=== PATIENT | female | born 1965 | race Caucasian/White ===

== ENCOUNTER 2024-06-18 14:14 | Outpatient (RCR) | payer MEDICAID, SELFPAY ==
--- NOTE | 2024-06-18 15:20 | PT.OPEX ---
PT [place] [facility] Eval PT [facility] Outpatient Eval Start: 06/18/24 11:55 Freq: Status: Active Protocol: Document 06/18/24 15:07 KLV (Rec: 06/18/24 15:17 KLV [id number]) E-signed By Heather South, PT Physical Therapy Outpatient Evaluation Insurance Information Recert Due Date 09/12/24 Insurance Name Medicaid Medical Diagnosis OA right knee Pre-op R TKA DOS: 06/22/24 ( [facility]) Treating Diagnosis Right knee pain, limited knee ROM, muscle weakness, antalgic gait Referring MD [place] Subjective Subjective Saya reports to PT with primary complaint of chronic right knee pain. Previous L TKA 1 year ago and recovered well. Currently ambulates with SEC and needing to take frequent seated rest breaks. 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 She lives with her daughter in a multilevel home with 1 step entry. Everything she needs is on main level. Does plan to stay with her Aunt for 2-3 days following surgery. Her home has 3 steps to enter with B handrail and everything on main level. At home she has a tub shower with shower chair, high rise toilet and leg system support administrator. She feels that she is very prepared since recently had her L knee replaced and previous spinal surgeries. 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 Session focused on education of post-operative fall prevention precautions, transfers, gait with AD, stair negotiation, post-operative exercises. She is able to verbalize precautions and demonstrated independence with exercises, gait and stairs. She is appropriate to proceed with surgery at this time. Primary Functional Limitations Walking, standing, stair negotiation, bending, lifting Plan of Care Rehabilitation Potential Good Physical Therapy Goals By end of session today, patient will...All goals MET Demonstrate appropriate gait pattern with FWW to utilize post surgery for optimal safety when ambulating Demonstrate ability to negotiate stairs using appropriate stair pattern post surgery for optimal safety when at home and in community Verbalize understanding of most appropriate home set up including needed equipment for optimal safety and recovery post surgery Be independent in HEP program to show ability to perform appropriate exercises post surgery Treatment Plan/Direct Interventions Self-Care/Home Management, Therapeutic Exercises Frequency/Duration 1 pre-op session. Patient will be doing post-op therapy at [facility] Patient Will Be Discharged From Therapy Completion of LTG(s), Independent w/HEP, Independently Progressing Evaluation Billing Untimed Code Treatment Minutes 10 Complexity Low Certification Information Initial Certification Date 06/18/24 Ending Certification Date 09/12/24 Provider Signature Required Yes Provider Signature Shows Agreement With POC & Medical Necessity Physician NPI Number Write NPI# Here Physician Comment/Change : Physician Signature & Date Requested Please Sign/Date Here
== END 2024-10-16 23:59 | disposition home or self-care (01) ==
PROVIDERS: PCP Family Medicine; Visit Provider Orthopaedic Surgery
DX: M17.11 Unilateral primary osteoarthritis, right knee (principal); Z96.651 Presence of right artificial knee joint; Z51.89 Encounter for other specified aftercare
CPT/HCPCS: 97110; 97161; 97535

== ENCOUNTER 2024-06-22 09:56 | Day surgery (SDC) | payer MEDICAID, SELFPAY ==
[2024-06-22] VITALS (25 sets, daily range): BP systolic 104–158; BP diastolic 51–96; PULSE 56–90; RESP 12–20; TEMP 35.8–37.4; O2SAT 85–98; BMI 49.5
[2024-06-22] MEDS: LACTATED RINGERS 1000 ML 1,000 ML 100 ML IV (11:00)
[2024-06-22] MEDS: OXYCODONE (CR) 10 MG TAB.ER.12H PO (11:00)
[2024-06-22] MEDS: SODIUM CHLORIDE 0.9 % (FLUSH) 10 ML SYRINGE IVF (11:00)
[2024-06-22] MEDS: ACETAMINOPHEN 500 MG TABLET 1000 MG PO ×2 (11:00→18:10)
--- NOTE | 2024-06-22 12:19 | SUR.PREOP ---
TIME?OUT:?1220 PT/RN/MDA?VERIFICATION?OF?SURGICAL?SITE,?PROCEDURE,?AND?CONSENT OBTAINED?PRIOR?TO?INVASIVE?PROCEDURE.
[2024-06-22] MEDS: fentaNYL 100 MCG/2 ML inj IVP (12:21)
[2024-06-22] MEDS: MIDAZOLAM HCL 1 MG/ML inj IVP (12:21)
[2024-06-22] MEDS: diphenhydrAMINE 50 MG/ML inj 25 MG IVP (12:38)
--- NOTE | 2024-06-22 12:55 | P.NB_ITS ---
Nerve Block Nerve Block Time Seen by Provider: : Date Seen: 06/22/24 Type of block requested by surgeon for post-operative analgesia: adductor canal Side: right Time out performed: Yes Verification of patient name: Yes Verification of date of : Yes Site marking: site marked Name of person performing procedure: William Continuous monitoring Was continuous monitoring of O2 sat, B/P, color television console monitor, recorded every 15 minutes?: Yes Procedure Checklist: sterile prep, needles and gloves Ultrasound guided. Images saved: Yes Medications given in 5ml increments after negative aspiration: Marcaine %: 0.25 mL: 15 Needle gauge: 20 Precedex (mcg): 25 Patient tolerated procedure well: Yes Block Charges Block Charge (with Pro Fee): Femoral Nerve Use of Ultrasound Machine for Block: Yes- US Guidance/pain block
--- NOTE | 2024-06-22 12:55 | P.NB_ITS ---
Nerve Block Nerve Block Time Seen by Provider: : Date Seen: 06/22/24 Type of block requested by surgeon for post-operative analgesia: geniculars Side: right Time out performed: Yes Verification of patient name: Yes Verification of date of : Yes Site marking: site marked Name of person performing procedure: William Continuous monitoring Was continuous monitoring of O2 sat, B/P, monitor tech, recorded every 15 minutes?: Yes Procedure Checklist: sterile prep, needles and gloves Ultrasound guided. Images saved: Yes Medications given in 5ml increments after negative aspiration: Marcaine %: 0.25 mL: 9 Needle gauge: 25 Patient tolerated procedure well: Yes Block Charges Block Charge (with Pro Fee): Genicular Nerve Block
--- NOTE | 2024-06-22 12:56 | W.ANESCHARGE ---
Anesthesia Charges Start Date/Time Anesthesia Start Date: 06/22/24 Anesthesia Start Time: 13:07 Stop Date/Time Anesthesia Stop Date: 06/22/24 Anesthesia Stop Time: 15:52
--- NOTE | 2024-06-22 13:10 | SUR.PREOP ---
At the beginning of nerve block a localized pinpoint red dots noted at knee and upper calf. Anesthesia ordered Benadryl 25mg IV.
--- NOTE | 2024-06-22 15:02 | CRLHL7_ITS ---
For Patients: As a result of the Cures Act, medical imaging exams and procedure reports are released immediately into your electronic medical record. You may view this report before your referring provider. If you have questions, please contact your health care provider. INDICATION: Post operative knee arthroplasty, post operative total knee arthroplasty TECHNIQUE: Knee radiograph 2 views right COMPARISON: 05/12/2024 FINDINGS: Bone: No acute fractures or aggressive bone lesions are identified. Joint: The patient is status post a total knee arthroplasty with patellar resurfacing. No significant knee effusion is seen. Soft tissue: Anterior subcutaneous gas and joint gas are present from recent surgery. No radiopaque foreign bodies are seen. IMPRESSION: 1. There is an unremarkable postoperative appearance of the knee arthroplasty. Dictated by: Armando Escoto MD @ 06/22/2024 16:24:14 (Electronically Signed)
--- NOTE | 2024-06-22 15:06 | PM.ORPRC ---
Procedure Note Date of procedure: 06/22/24 Procedure: PREOPERATIVE DIAGNOSIS: Right knee osteoarthritis POSTOPERATIVE DIAGNOSIS: Right knee osteoarthritis NAME OF OPERATION: Right total knee arthroplasty SURGEON: Armando Castle MD SPA ASSISTANT MANAGER: Loree Tong PA-C ANESTHESIA: General ESTIMATED BLOOD LOSS: 0 mL COMPLICATIONS: None SPECIMENS: None DRAINS: None PREOPERATIVE ANTIBIOTICS: Ancef 3 grams, antibiotic impregnated cement IMPLANTS: 1. J&J Attune revision CRS #6 posterior stabilized femur, 14 mm x 50 mm cemented stem 2. Revision CRS #4 fixed-bearing tibia, 14 mm x 50 mm cemented stem 3. #6 posterior stabilized, 10 mm fixed-bearing polyethylene 4. 38 patella INDICATIONS: The patient is a 59-year-old with a longstanding history of severe, unrelenting right knee pain secondary to end-stage (grade IV) right knee osteoarthritis. Despite appropriate nonoperative management, including activity modification, anti-inflammatories, [id number] pain medication, bracing, physical therapy, and injections they continue to have pain and disability. Operative intervention was offered. The risks, benefits and expected outcomes were discussed in detail. These included but were not limited to: Infection, bleeding, injury to blood vessel or nerve, venous thromboembolism. All questions were answered to their satisfaction. Use of an public relations assistant was necessary throughout the case for patient positioning and safety, soft tissue retraction, and closure. A modifier 22 should be added to this case. The patient's weight of 135 kg with a BMI of 50 made the exposure difficult. In an attempt to reduce the risk of aseptic loosening with this high BMI, stemmed components were used. These factors added time and cost to complete the case. PROCEDURE: The patient was placed supine on the operating table. General anesthesia was administered. The public relations assistant made sure the patient was positioned appropriately. The lower extremity was prepped and draped in the usual sterile fashion. The limb was exsanguinated with the Tad bandage. The pneumatic tourniquet was inflated to 300 mmHg. A standard anterior incision was made with the knee in flexion. Subcutaneous dissection was sharply taken through fascial layer #1. Full-thickness medial and lateral flaps were elevated. The public relations assistant retracted the soft tissues and protected them throughout the case. A standard subvastus approach was made. The patella was subluxed. The infrapatellar fat pad was debrided. The menisci and cruciate ligaments were sharply d?brided. Marginal osteophytes were d?brided with the rongeur. The drill was used to penetrate the femoral canal. The canal was aspirated and irrigated with pulse lavage. The intramedullary femoral guide was placed for a 5-degree valgus cut, removing 10 mm off the distal femur. The saw was used to make the cut. Whitesides line and the trans epicondylar axis were marked. The femoral sizing guide was pinned onto the distal femur. Three degrees of external rotation nicely parallels the transepicondylar axis. Pins were placed for posterior referencing. The four-in-one cutting guide was pinned onto the distal femur. The anterior, posterior, and chamfer cuts were made. The public relations assistant protected the collateral ligaments. The revision trial was placed. The box cuts were made. The drill was used x2. The stemmed, boxed trial was placed and was an excellent fit. Attention was then turned to the proximal tibia. The extramedullary tibial guide was placed for a neutral varus/valgus cut with 5 degrees of posterior slope, removing 2 mm based off the medial tibial surface. The public relations assistant protected the collateral ligaments and the neurovascular bundle. The saw was used to make the cut. Trial components were placed. The knee was nicely balanced in both flexion and extension. The trial components were removed. The tray was placed in appropriate rotation, parallel to our tibial cutting pins. It was pinned by the public relations assistant and the drill x2 was used. The stemmed tibial trial was placed. The punch was used. The tray was removed. The punch was used again. Attention was then turned to the patella. Tanana patellar thickness was 21.5 mm. The lobster claw resection guide was used with the 7.5 mm tony. The saw was used to make the cut. Drill holes were made by the public relations assistant. The trial was placed and was an excellent fit. Cancellous surfaces were irrigated with pulse lavage and thoroughly dried by the public relations assistant. We cemented the tibial component, then the femoral component. We impacted the 10 mm polyethylene onto the tibial tray. The knee was brought into full extension. We then cemented the patellar component. Excessive cement was removed. The cement was allowed to harden. The knee was taken through a range of motion and was found to be nicely balanced in both flexion and extension. The patella tracks centrally. The public relations assistant did a three minute dilute Betadine solution soak. The public relations assistant irrigated the wound with 3 liters of normal saline via pulse lavage. The public relations assistant reapproximated the extensor mechanism with #1 Vicryl in an interrupted [id number] fashion. The public relations assistant then ran the extensor mechanism with a #1 PDO Stratafix. The public relations assistant closed the subcutaneous tissues with a 3-0 Stratafix and the skin with a running 3-0 Stratafix in a subcuticular fashion. Glue was used to seal the skin. The public relations assistant placed a dry dressing. Sponge and needle counts were correct x2. The patient tolerated the procedure well. There were no apparent complications. They were carefully transferred to the hospital bed and taken to the postanesthesia care unit in satisfactory condition. PLAN: The patient will be mobilized with physical therapy. Aspirin will be used for DVT prophylaxis. They will be discharged to home once medically appropriate.
--- NOTE | 2024-06-22 15:56 | W.ANESCHARGE ---
Anesthesia Charges Start Date/Time Anesthesia Start Date: 06/22/24 Anesthesia Start Time: 13:07 Stop Date/Time Anesthesia Stop Date: 06/22/24 Anesthesia Stop Time: 15:52
[2024-06-22] MEDS: HYDROmorphone 0.5 mg/0.5 ml inj IVP ×2 (17:10→18:06)
[2024-06-22] MEDS: CEFAZOLIN 3 GM in 0.9 % SODIUM CHLORIDE Mini-bag 100 ML IVPB (18:07)
--- NOTE | 2024-06-22 19:19 | PC.NURSE ---
Arrived to the floor @ 1630. The patient arrives with 8/10 pain in R knee. PRN medication was given, R knee dressing is CDI. pedal pulse present. No reports of nausea, the patient has not eaten and has mainly been drowsy. Call light within reach. Patient is using her CPAP from home. Arabella SHAFFER BSN
[2024-06-22] MEDS: OXYCODONE 5 MG TABLET PO ×2 (19:37→21:38)
[2024-06-22] MEDS: ASPIRIN 81 MG TABLET EC PO (20:57)
[2024-06-22] MEDS: SENNOSIDES 1 TAB TABLET 2 TAB PO (20:57)
[2024-06-23] MEDS: ACETAMINOPHEN 500 MG TABLET 1000 MG PO ×2 (00:22→05:55)
[2024-06-23] MEDS: OXYCODONE 5 MG TABLET PO ×4 (00:22→08:23)
[2024-06-23] MEDS: HYDROmorphone 0.5 mg/0.5 ml inj IVP (02:29)
[2024-06-23] MEDS: CEFAZOLIN 3 GM in 0.9 % SODIUM CHLORIDE Mini-bag 100 ML IVPB (02:29)
[2024-06-23 02:40] VITALS: RESP 18; O2SAT 94
[2024-06-23 02:45] VITALS: BP 109/64; PULSE 84; RESP 18; TEMP 36.7; O2SAT 94
[2024-06-23 07:06] LABS: Hemoglobin* 12.8 gm/dL (12.0-16.0); Immature Granulocytes Abs Auto 0.01 K/uL (0.00-0.30); Immature Granulocytes Pct Auto 0.1 %; Lymphocytes Percent Auto 14.4 % (20-44); Mean Corpuscular HGB Conc 31 gm/dL (32-36); Mean Corpuscular Hemoglobin 29 pg (26-34); Mean Corpuscular Volume 92 fL (80-100); Neutrophils Percent Auto 74.5 % (42.0-72.0); Platelet Count* 283 K/uL (140-440); RDW Coefficient of Variation % 13.4 % (11.5-15.5); Red Blood Count 4.47 m/uL (4.00-5.20)
[2024-06-23 07:13] LABS: Slide Review Reflex No
[2024-06-23 07:28] LABS: Potassium* 4.5 mmol/L (3.6-5.1); Sodium* 138 mmol/L (135-149)
--- NOTE | 2024-06-23 07:28 | PC.NURSE ---
Pt alert and oriented x3. Afebrile. Pt reports 6-8/10 pain in right knee, pain managed with PRN medications. RN discussed with pt pain management pt reports that prior to surgery her pain was 10/10 and her knee feels ?much better than before? RN asked if pt felt her pain was tolerable pt stated ?yes, I am able to sleep and get up and walk.??Pt?s right knee dressing is CDI. Pt is up SBA with walker, voiding and tolerating a regular diet. ?
[2024-06-23 07:31] LABS: Creatinine* 1.3 mg/dL (0.5-1.5); Est. Creatinine Clearance* 40.89; Estimated Glomerular Filt Rate 47 ml/min
[2024-06-23 07:32] LABS: Blood Urea Nitrogen* 20 mg/dL (7-30)
[2024-06-23 07:33] LABS: INR 1.08 (0.91-1.10); Prothrombin Time 14.6 Seconds
--- NOTE | 2024-06-23 07:55 | PM.ORPN ---
Subjective Subjective Time Seen by Provider: 07:55 Date Seen: 06/23/24 Principal diagnosis: Status post right knee replacement Interval history: Asya is comfortable this morning sitting in her recliner. She states she got some sleep last night as well. She has been ambulating in this has been going well. She plans to discharge today. Ortho Exam Narrative Exam Narrative: Alert and oriented x3. Patient is in no acute distress. Converses without labored breathing. Hearing is grossly intact. Ambulates with a walker. Examination of the right knee shows the dressing is intact. Ecchymosis is present. No drainage or erythema or sign of infection. CMS intact right lower extremity. Calf is soft and nontender. She is easily able to straight leg raise. Const Vital Signs, click to edit/add: Vital Signs - 24 hr 06/22/24 10:17 06/22/24 12:21 06/22/24 12:25 Temperature 97.8 F Pulse Rate 65 62 65 Pulse Rate [Left Pulse Oximeter] Respiratory Rate 20 20 18 Blood Pressure 148/51 H 150/79 H 136/68 Blood Pressure [Left Arm] Pulse Oximetry 95 98 95 Oxygen Delivery Method Room Air Nasal Cannula Nasal Cannula Oxygen Flow Rate 2 2 06/22/24 12:30 06/22/24 12:35 06/22/24 12:40 Temperature Pulse Rate 60 59 L 57 L Pulse Rate [Left Pulse Oximeter] Respiratory Rate 18 18 16 Blood Pressure 107/60 119/71 105/60 Blood Pressure [Left Arm] Pulse Oximetry 97 96 96 Oxygen Delivery Method Nasal Cannula Nasal Cannula Nasal Cannula Oxygen Flow Rate 2 2 2 06/22/24 12:45 06/22/24 15:47 06/22/24 15:55 Temperature 97.3 F L Pulse Rate 56 L 65 61 Pulse Rate [Left Pulse Oximeter] Respiratory Rate 16 14 16 Blood Pressure 119/64 105/75 109/73 Blood Pressure [Left Arm] Pulse Oximetry 97 93 97 Oxygen Delivery Method Nasal Cannula OxyMask OxyMask Oxygen Flow Rate 2 10 10 06/22/24 16:00 06/22/24 16:05 06/22/24 16:10 Temperature 97.4 F L Pulse Rate 60 60 61 Pulse Rate [Left Pulse Oximeter] Respiratory Rate 14 16 14 Blood Pressure 112/72 129/58 L 112/95 H Blood Pressure [Left Arm] Pulse Oximetry 98 98 97 Oxygen Delivery Method OxyMask OxyMask Blow By Oxygen Flow Rate 10 6 10 06/22/24 16:15 06/22/24 16:19 06/22/24 16:25 Temperature 97.4 F L 96.4 F L Pulse Rate 66 66 67 Pulse Rate [Left Pulse Oximeter] Respiratory Rate 16 16 14 Blood Pressure 127/83 139/96 H Blood Pressure [Left Arm] Pulse Oximetry 95 94 Oxygen Delivery Method Room Air Room Air Oxygen Flow Rate 06/22/24 16:45 06/22/24 17:00 06/22/24 17:15 Temperature 96.4 F L 96.6 F L 96.6 F L Pulse Rate 71 68 88 Pulse Rate [Left Pulse Oximeter] Respiratory Rate 12 14 14 Blood Pressure 158/76 H 140/66 H 139/67 Blood Pressure [Left Arm] Pulse Oximetry 90 88 88 Oxygen Delivery Method Room Air Oxygen Flow Rate 06/22/24 17:30 06/22/24 17:31 06/22/24 18:00 Temperature 96.6 F L 97.7 F Pulse Rate 70 83 Pulse Rate [Left Pulse Oximeter] Respiratory Rate 14 14 Blood Pressure 119/72 104/69 Blood Pressure [Left Arm] Pulse Oximetry 85 L 92 91 Oxygen Delivery Method CPAP CPAP CPAP Oxygen Flow Rate 06/22/24 18:30 06/22/24 19:30 06/22/24 21:00 Temperature 99.0 F 99.3 F 97.7 F Pulse Rate 85 71 90 Pulse Rate [Left Pulse Oximeter] Respiratory Rate 14 20 20 Blood Pressure 120/75 125/70 145/72 H Blood Pressure [Left Arm] Pulse Oximetry 90 91 96 Oxygen Delivery Method CPAP Room Air Room Air Oxygen Flow Rate 06/22/24 23:00 06/23/24 02:40 06/23/24 02:45 Temperature 97.8 F 98.1 F Pulse Rate 77 Pulse Rate [Left Pulse Oximeter] 84 Respiratory Rate 18 18 18 Blood Pressure 115/62 Blood Pressure [Left Arm] 109/64 Pulse Oximetry 91 94 94 Oxygen Delivery Method Room Air Room Air Room Air Oxygen Flow Rate Assessment and Plan Assessment and plan (1) Morbid obesity: Status: Acute (2) Status post right knee replacement: Status: Acute Assessment and Plan: Plan for discharge is today to home if they meet discharge criteria. DVT prophylaxis includes aspirin 81 mg twice daily x1 month, Compression stockings as needed for swelling. Frequent ambulation, every hour throughout the day. Remove dressing in 1 week. Observe wound and phone Orthopedics with any questions or concerns Return to clinic in 1 week for a wound check Return to clinic in 6 weeks with surgeon Minimize narcotic use. Wean off and discontinue soon as possible. Activities as tolerated. No strenuous activity. Outpatient physical therapy as scheduled. Ice and elevate the operative extremity. No restriction on ice.
[2024-06-23 08:04] VITALS: O2SAT 95
[2024-06-23 08:07] VITALS: BP 118/60; PULSE 72; RESP 18; TEMP 36.4; O2SAT 95
[2024-06-23] MEDS: SENNOSIDES 1 TAB TABLET 2 TAB PO (08:24)
[2024-06-23] MEDS: ESCITALOPRAM 10 MG TABLET PO (08:24)
[2024-06-23] MEDS: OMEPRAZOLE 20 MG CAPSULE DR 40 MG PO (08:24)
[2024-06-23] MEDS: FEXOFENADINE 180 MG TABLET PO (08:24)
[2024-06-23] MEDS: ASPIRIN 81 MG TABLET EC PO (08:29)
[2024-06-23] MEDS: ONDANSETRON 2 MG/ML inj 4 MG IVP (10:11)
--- NOTE | 2024-06-23 12:00 | PC.NURSE ---
Discharge: Patient pleasant and cooperative. Up with one assist, walker and gait belt. Vitals stable, pain managed with PRN and scheduled medication, see MAR. C/o nausea with therapy, given PRN zofran, patients family asked for order for zofran at D/C, Emilee PA updated and ordered, family and patient updated and told when last dose was given. Discharge instructions reviewed, questions answered as needed. IV removed with catheter intact. Patient discharged @ 1142 via wheelchair, home with aunt.
== END 2024-06-23 11:42 | disposition home or self-care (01) ==
LOC: OR 09:58 → MEDSURG 10:00
PROVIDERS: PCP Family Medicine; Visit Provider Orthopaedic Surgery
PROC: (CPT 27447; principal; 2024-06-22 11:15)
DX: M17.11 Unilateral primary osteoarthritis, right knee (principal); G89.18 Other acute postprocedural pain; E66.01 Morbid (severe) obesity due to excess calories; Z68.43 Body mass index [BMI] 50.0-59.9, adult
CPT/HCPCS: 27447; 01402; 36415; 64447; 64454; 73560; 76942; 82565; 84132; 84295; 84520; 85025; 85610; 97110; 97116; 97162; 97165; 97535; A9270; C1776; J0330; J0665; J0690; J1100; J1171; J1200; J1630; J2250; J2405; J2704; J3010; J3490; J7120